=== PATIENT | female | born 1980 | race Caucasian/White ===

== ENCOUNTER 2017-12-27 03:04 | Emergency (ER) | payer OTHER ==
[~2017-12-27] VITALS: Ht 162.6 cm; Wt 79.4 kg
--- NOTE | 2017-12-27 03:12 | NUR ---
Patient to ER bed 08 to gown for evaluation. Side rails up. Report given to YOLANDA JEFFERSON.
[2017-12-27 03:15] VITALS: BP_SYST 144
--- NOTE | 2017-12-27 03:15 | NUR ---
Patient ambulatory to ED a/o x 4 with c/o ABD pain. Describes pain as 10/10 burning pain localized to Upper ABD and radiating to back. +N/V x 1 episode. Patient took tums and antacids at home with minimal relief. No distention noted. Denies change in bowel movements. Patient afebrile.
--- NOTE | 2017-12-27 03:22 | NUR ---
JENNIFER Johnson at bedside for medical evaluation.
[2017-12-27] MEDS ORDERED: NACL 0.9% 1,000 ML IV ONE (03:26)
[2017-12-27] MEDS ORDERED: MORPHINE 4 MG/ML INJ. SYRINGE IVP ONE (03:30)
[2017-12-27] MEDS ORDERED: ONDANSETRON HCL 4 MG/2 ML VIAL IVP ONE (03:30)
[2017-12-27] MEDS ORDERED: PANTOPRAZOLE SODIUM 40 MG/VIAL (PROTONIX) IVP ONE (03:30)
[2017-12-27] MEDS ORDERED: DIPHENHYDRAMINE INJ 50 MG/ML VIAL IVP ONE (03:30)
[2017-12-27 03:37] LABS: BILIRUBIN,URINE NEGATIVE (NEGATIVE); BLOOD, URINE 3+ (NEGATIVE); CLARITY/URINE SL HAZY (CLEAR); COLOR,URINE YELLOW (YELLOW); GLUCOSE,URINE NEGATIVE (NEGATIVE); KETONES,URINE NEGATIVE (NEGATIVE); LEUKOCYTE ESTERASE ,URINE 1+ (NEGATIVE); NITRITE, URINE NEGATIVE (NEGATIVE); PROTEIN URINE NEGATIVE (NEGATIVE); UROBILINOGEN,URINE 0.2 (0.2-1.0)
--- NOTE | 2017-12-27 03:44 | NUR ---
Ultrasound at bedside.
[2017-12-27 03:45] LABS: HEMATOCRIT 30.6 % (36-48); HEMOGLOBIN 10.1 g/dL (12.0-16.0); MEAN CORPUSCULAR HEMOGLOBIN 26 pg (27-31); MEAN CORPUSCULAR HGB CONC 33 % (32-36); MEAN CORPUSCULAR VOLUME 79 fL (79.0-98.0); PLATELET COUNT (AUTO) 302 K/uL (130-430); RED CELL DISTRIBUTION WIDTH 14.6 % (9.0-15.0); WHITE BLOOD COUNT (AUTO) 12.6 K/uL (4.8-10.8)
[2017-12-27 03:54] LABS: CALCIUM 9.2 mg/dL (8.4-11.0); CREATININE 0.66 mg/dL (0.55-1.30); POTASSIUM 4.1 mmol/L (3.5-5.1)
[2017-12-27 03:59] LABS: ALBUMIN 3.7 g/dL (3.4-4.8); TOTAL BILIRUBIN 0.1 mg/dL (0.0-1.0)
[2017-12-27 04:05] LABS: BACTERIA,URINE FEW /HPF (None Seen); RBC,URINE 20-50 /HPF (0-3)
[2017-12-27 04:14] LABS: BASOPHILS % (MANUAL) 0 % (0-2); EOSINOPHILS % (MANUAL) 3 % (0-7); LYMPHOCYTES % (MANUAL) 15 % (20-46); MONOCYTES % (MANUAL) 9 % (0-11)
[2017-12-27] MEDS ORDERED: KETOROLAC TROMETHAMINE 30 MG VIAL IVP ONE (04:45)
--- NOTE | 2017-12-27 07:10 | NUR ---
Assumed care. Pt has no acute distress noted. Pt reports pain tolerable at 2/10. Continuing to monitor.
--- NOTE | 2017-12-27 08:34 | NUR ---
Patient given written and verbal discharge instructions and verbalizes understanding. ER MD discussed with patient the results and treatment provided. Patient in stable condition. ID arm band removed. IV catheter removed intact and dressing applied, no active bleeding. Rx of [place] given. Patient educated on pain management and to follow up with PMD. Pain Scale 2. Opportunity for questions provided and answered. Medication side effect fact sheet provided.
[2017-12-27 08:35] VITALS: BP_SYST 124
== END 2017-12-27 08:35 | disposition home or self-care (01) ==
LOC: SED 03:04
DX: K80.20 Calculus of gallbladder without cholecystitis without obstruction (principal)
CPT/HCPCS: 36415; 74176; 76700; 80053; 81000; 81025; 83690; 85007; 85027; 87086; 96361; 96374; 96375; 99285; C9113; J1200; J1885; J2270; J2405; J7030